=== PATIENT | female | born 1960 | race African-American/Black ===

== ENCOUNTER 2016-08-10 13:26 | Emergency (ER) | payer OTHER ==
[~2016-08-10 13:26] MED LIST: ALD50 PO; CEL20 PO; GLU500 PO; LISINOPRIL40 MG PO; LOR PO; METOPROLOL SUCC25 M1 PO; METOPROLOL TART50 MG PO; NOR10 PO; POTASSIUM CHLO10 MEQ PO; [UNRECOGNIZED DRUG - OTHER] PO
[2016-08-10 13:40] VITALS: BP 119/92
== END 2016-08-10 14:47 | disposition home or self-care (01) ==
LOC: ED 13:26
DX: S92.512A Displaced fracture of proximal phalanx of left lesser toe(s), initial encounter for closed fracture (principal); I10 Essential (primary) hypertension; E11.9 Type 2 diabetes mellitus without complications; Z79.899 Other long term (current) drug therapy; W22.8XXA Striking against or struck by other objects, initial encounter; Y93.89 Activity, other specified; Y92.89 Other specified places as the place of occurrence of the external cause; Y99.8 Other external cause status

== ENCOUNTER 2019-10-16 15:46 | Emergency (ER) | payer OTHER ==
[~2019-10-16] VITALS: Ht 149.9 cm; Wt 74.8 kg
[2019-10-16 15:53] VITALS: Ht 149.9 cm; Wt 74.8 kg
[2019-10-16 17:33] LABS: BASOPHIL % 0.6 % (0-2); PLATELET COUNT 341 x10^3mcL (130-400); RED CELL DISTRIBUTION WIDTH 12.1 % (11.5-14.5)
[2019-10-16 17:41] LABS: CALCIUM 9.1 mg/dL (8.5-10.1); CARBON DIOXIDE 29.2 mmol/L (21-32); CHLORIDE SERUM 104 mmol/L (98-107); CREATININE SERUM 0.8 mg/dL (0.6-1.0); GFR1 > 60 mL/min; GLUCOSE SERUM 95 mg/dL (74-106); POTASSIUM SERUM 3.1 mmol/L (3.5-5.1); SODIUM SERUM 140 mmol/L (136-145)
[2019-10-16 17:46] LABS: ALBUMIN 3.9 g/dL (3.4-5.0); ALKALINE PHOSPHATASE 89 U/L (46-116); ALT/SGPT 30 U/L (14-59); AST/SGOT 17 U/L (15-37); BILIRUBIN TOTAL 0.41 mg/dL (0.20-1.00); TOTAL PROTEIN, SERUM 8.1 g/dL (6.4-8.2)
[2019-10-16 19:44] VITALS: BP 140/98
== END 2019-10-16 19:44 | disposition home or self-care (01) ==
LOC: ED 15:46
PROVIDERS: Emergency Medicine
DX: I16.0 Hypertensive urgency (principal); E11.9 Type 2 diabetes mellitus without complications
CPT/HCPCS: 83880; J1200; J1885; J2270; J2765; J3490; Q0092